=== PATIENT | male | born 1990 | race Caucasian/White ===

== ENCOUNTER 2020-10-03 09:54 | Emergency (ER) | payer MEDICAID ==
[~2020-10-03] VITALS: Ht 175.3 cm; Wt 88.5 kg
[2020-10-03 10:27] VITALS: Ht 175.3 cm; Wt 88.5 kg
[2020-10-03 11:14] LABS: microscopic required? NO
[2020-10-03 11:20] LABS: PLATELET COUNT 253 x10^3mcL (152-348); RED CELL DISTRIBUTION WIDTH 12.3 % (12.1-16.2)
[2020-10-03 11:49] LABS: CALCIUM 9.1 mg/dL (8.5-10.1); CARBON DIOXIDE 28.1 mmol/L (21-32); CHLORIDE SERUM 103 mmol/L (98-107); GFR1 > 60 mL/min; GLUCOSE SERUM 104 mg/dL (74-106); POTASSIUM SERUM 4.1 mmol/L (3.5-5.1); SODIUM SERUM 138 mmol/L (136-145)
[2020-10-03 11:59] LABS: urine erythrocyte NEGATIVE (NEGATIVE)
[2020-10-03 12:01] LABS: ALBUMIN 4.3 g/dL (3.4-5.0); ALKALINE PHOSPHATASE 88 U/L (46-116); ALT/SGPT 31 U/L (16-63); AST/SGOT 17 U/L (15-37); BILIRUBIN TOTAL 0.47 mg/dL (0.20-1.00); CHOLESTEROL 199 mg/dL (<200); HDL CHOLESTEROL 38 mg/dL (40-60); LIPASE 103 IU/L (73-393); TOTAL PROTEIN, SERUM 7.8 g/dL (6.4-8.2)
[2020-10-03 12:01] LABS: AMPHETAMINE QUAL UR NONE DETECTED (See below)
[2020-10-03 14:23] VITALS: BP 112/80
== END 2020-10-03 14:23 | disposition home or self-care (01) ==
LOC: ED 09:54
PROVIDERS: Emergency Medicine
DX: R07.89 Other chest pain (principal); Z20.828 Contact with and (suspected) exposure to other viral communicable diseases
CPT/HCPCS: 83880; U0003